=== PATIENT | female | born 1955 | race Caucasian/White ===

== ENCOUNTER 2016-08-04 20:02 | Emergency (ER) ==
[2016-08-04 20:37] LABS: URINE SOURCE CLEAN CATCH
[2016-08-04 20:44] LABS: BILIRUBIN URINE NEGATIVE (NEGATIVE); BLOOD URINE SMALL (NEGATIVE); COLOR YELLOW; GLUCOSE URINE NEGATIVE (NEGATIVE); LEUKOCYTES URINE LARGE (NEGATIVE); NITRITE URINE POSITIVE (NEGATIVE); PROTEIN URINE TRACE mg/dL (NEGATIVE); SP GRAVITY URINE 1.012; TURBIDITY URINE HAZY (CLEAR); URINE MICRO REVIEW NEEDED? YES; UROBILINOGEN URINE NORMAL (NORMAL)
[2016-08-04 20:57] LABS: UR EPITHELIAL CELLS <10 /HPF (<10); URINE BACTERIA 4+ /HPF; URINE CULTURE NEEDED? YES; URINE RBC <10 /HPF (<10); URINE WBC TNTC /HPF (<10)
[2016-08-04 20:58] LABS: URINE CASTS NONE SEEN; URINE CRYSTALS NONE SEEN; URINE SMALL ROUND CELLS NONE SEEN
[2016-08-04] MEDS ORDERED: ROCEPHIN IM ONE (22:06)
[2016-08-04] MEDS ORDERED: XYLOCAINE-MPF 1% INJ ONE (22:06)
[2016-08-04] MEDS: TYLENOL PO ONE ×2 (22:06→22:18)
--- NOTE | 2016-08-04 22:18 | PROVIDER DOCUMENTATION ---
HPI-General Adult - General Chief Complaint: General Adult Stated Complaint: CHILLS, BODY ACHES, DIZZY Time Seen by Provider: 08/04/16 22:05 Source: patient Allergies/Adverse Reactions: Patient Allergies Allergy/AdvReac Type Severity Reaction Status Date / Time cyclobenzaprine HCl * Allergy ANAPHYLAXIS Verified 03/27/14 08:02 [From Flexeril] - History of Present Illness -Gen Adult Nature of Presenting Problems: Pt. is 60yof that presents with c/o burning urination and aching all over. Pt. reports she went to her [employer] physician yesterday for her annual exam and told him these symptoms but he took a urine and told her he would call in about a week with her results. Pt. reports she has been taking tylenol for her fever. Location of Pain/Injury: reports: genitalia, generalized. denies: head, face, mouth, neck, chest, upper extremity, hand(s), abdomen, back, pelvis, lower extremity, feet, upper body, lower body Pain Radiation: reports: no radiation Quality of Pain: reports: aching, burning. denies: cramping, dull, fullness, indigestion, pressure, sharp, stabbing, tearing, throbbing, tightness Severity: reports: moderate. denies: mild, severe Onset/Duration: reports: gradual, 2 days ago Timing: reports: still present. denies: improving, gone now, resolved prior to arrival, intermittent, constant, changing over time, getting worse Context/Activities at Onset: reports: none. denies: recent emotional stress, recent physical stress, recent trauma history, possible bad food, cold exposure , out of country travel Modifying Factors: improves with: nothing Associated Symptoms: reports: back/neck pain, fever/chills, genitourinary problems, malaise, muscle aches. denies: anxiety, arm pain, chest pain, constipation, cough, diaphoresis, diarrhea, dizziness, EENT symptoms, fatigue, headaches, heartburn, joint pain, loss of appetite, sinus congestion/drainage, nausea, rash, seizure, shortness of breath, sensory/motor loss, pain with inspiration, swelling/mass in abdomen, syncope, vomiting, weakness, trouble walking Similar Symptoms Previously?: Yes Recently seen or treated by another doctor?: Yes Review of Systems - Adult - REVIEW OF SYSTEMS - ADULT Constitutional: reports: see HPI, chills, fever, fatique. denies: night sweats , weight gain, weight loss Eyes: reports: see HPI. denies: discharge, blurred vision, double vision Ears, Nose, Mouth & Throat: reports: see HPI. denies: ear discharge, ear pain, sinus problem, nose pain, loose teeth, mouth/dental pain, throat pain, throat swelling Cardiovascular: reports: see HPI. denies: chest pain, irregular heart rate, orthopnea, palpitations, syncope Respiratory: reports: see HPI. denies: chronic cough, cough, dyspnea on exertion, pleurisy, shortness of breath, wheezing Gastrointestinal: reports: see HPI. denies: abdominal pain, hematemesis, diarrhea, nausea, vomiting Genitourinary: reports: see HPI, dysuria. denies: discharge, frequency, flank pain, hematuria, hesitency, incontinence, urgency Musculoskeletal: reports: see HPI, back pain, muscle aches. denies: bone pain, joint pain, joint swelling, neck pain Integumentary: reports: see HPI. denies: hives, itching, rash, skin thickening Neurological: reports: see HPI. denies: ataxia, headache/migraines, numbness, paresthesia, seizure, tremors Psychiatric: reports: see HPI. denies: anxiety, depression, emotional problems , insomnia, panic attacks, suicidal thoughts Past History - Adult - PAST MEDICAL HISTORY-ADULT Review of Records: reports: Old Records Reviewed, Nursing Assessment Review, Medications Reviewed, Social history reviewed & non-contributory. Psychiatric: reports: anxiety Physical Exam-General - PHYSICAL EXAM-ADULT Initial Vital Signs Reviewed: Yes - CONSTITUTIONAL General Appearance: alert, mild distress, thin. negative: obese, anxious, lethargic, slow to respond, obtunded, combative - EYES Eyes: PERRL/EOMI, pink conjunctivae. negative: conjuctival exudate, scleral icterus, subconjunctival hemorrhage - HEAD, EARS, NOSE, MOUTH & THROAT HENMT: normocephalic/atraumatic, moist mucous membranes. negative: angioedema, frontal tenderness, maxillary tenderness - NECK Neck: non-tender, full range of motion, supple, normal inspection. negative: lymphadenopathy, trachial deviation, thyromegaly - RESPIRATORY Respiratory: lungs clear, normal breath sounds. negative: crackles, rales, stridor, wheezing - CARDIOVASCULAR Cardiovascular: regular rate, rhythm, no edema, no JVD, no murmur, tachycardia. negative: extra beats, friction rub, irregularly irregular - CHEST (BREASTS) Chest/Breast: deferred - GASTROINTESTINAL (ABDOMEN) Abdominal Exam: normal bowel sounds, non tender, soft. negative: distended, guarding, rigid, rebound, tenderness, hernia, mass - GENITOURINARY Female Genitalia/Pelvic Exam: deferred Rectal Exam: deferred Hemoccult Exam: deferred - LYMPHATIC Lymphatic: no adenopathy. negative: axilla node tender, cervical node tenderness - MUSCULOSKELETAL Back Exam: normal inspection, no CVA tenderness, no vertebral tenderness. negative: ecchymosis, muscle spasm, vertebral tenderness Extremity: normal range of motion, non-tender, normal gait, normal inspection. negative: deformity, erythema, inflammation, swelling, tenderness Peripheral Pulses: radial (R): 2+, radial (L): 2+ - SKIN Integumentary: normal color, normal turgor, warm/dry. negative: cyanosis, diaphoresis, ecchymosis, erythema, jaundice, mottled, pallor, petechiae, purpura , rash, swelling, tenderness - NEUROLOGIC Neurologic: grossly normal, no motor/sensory deficits. negative: abnormal gait , aphasia, facial droop, focal weakness, motor weakness, sensory deficit - PSYCHIATRIC Psych/Mental Status: normal mood/affect, normal thought content, normal thought process, oriented x 3. negative: anxious, paranoid, tearful Progress - PLAN OF CARE/RESULTS Progress/Plan/Lab Results: Discussed results and plan of care with patient. Patient agrees with plan and verbalizes understanding. Vital Signs Temp Pulse Resp BP Pulse Ox 08/04/16 20:28 102.3 F H 103 H 20 137/75 97 cyclobenzaprine HCl * [From Flexeril] Allergy (Verified 03/27/14 08:02) ANAPHYLAXIS No Home Medications 08/04/16 I&O 08/03/16 08/04/16 08/05/16 06:59 06:59 06:59 Output Total 100 Balance -100 Laboratory 08/04/16 20:36 Urine Source CLEAN CATCH Urine Color YELLOW Urine Turbidity HAZY Urine pH 7.0 Ur Specific [place] 1.012 Urine Protein TRACE A Ur Glucose (Stick) NEGATIVE Ur Ketones (Stick) NEGATIVE Urine Blood SMALL A Urine Nitrite POSITIVE A Urine Bilirubin NEGATIVE Urobilinogen Dipstick NORMAL Urine Leukocytes LARGE A Urine WBC (Auto) TNTC A Urine RBC (Auto) <10 U Epithel Cells (Auto) <10 Urine Bacteria (Auto) 4+ Urine Crystals NONE SEEN Small Round Cells NONE SEEN Urine Casts NONE SEEN Urine Yeast-like Cells NONE SEEN Orders Category Date Time Status DIRECT STREP Stat Lab 08/04/16 20:21 Completed INFLUENZA SCREEN A/B Stat Lab 08/04/16 20:21 Completed URINALYSIS W/POSS RFLX CULT [URINALYSIS] Stat Lab 08/04/16 20:36 Completed URINE CULTURE [RM] Routine Lab 08/04/16 21:18 Received URINE MANUAL MICROSCOPIC [URINALYSIS] Stat Lab 08/04/16 20:36 Completed Acetaminophen [Tylenol] Med 08/04/16 22:06 Discontinued 1,000 mg PO NOW ONE CefTRIAXONE [Rocephin] Med 08/04/16 22:06 Discontinued 1 gm IM NOW ONE Lidocaine 1% Pf [Xylocaine-Mpf 1%] Med 08/04/16 22:06 Discontinued 5 ml INJ NOW ONE Laboratory Tests 08/04/16 20:36 Urine Source CLEAN CATCH Urine Color YELLOW Urine Turbidity HAZY Urine pH 7.0 Ur Specific [place] 1.012 Urine Protein TRACE A Ur Glucose (Stick) NEGATIVE Ur Ketones (Stick) NEGATIVE Urine Blood SMALL A Urine Nitrite POSITIVE A Urine Bilirubin NEGATIVE Urobilinogen Dipstick NORMAL Urine Leukocytes LARGE A Urine WBC (Auto) TNTC A Urine RBC (Auto) <10 U Epithel Cells (Auto) <10 Urine Bacteria (Auto) 4+ Urine Crystals NONE SEEN Small Round Cells NONE SEEN Urine Casts NONE SEEN Urine Yeast-like Cells NONE SEEN Departure - Departure Time of Disposition Order: 22:19 DIAGNOSIS: UTI (urinary tract infection) Qualifiers: Urinary tract infection type: acute cystitis Hematuria presence: without hematuria Qualified Code(s): N30.00 - Acute cystitis without hematuria Disposition: HOME 01 Certified Medical Emergency: Emergent Condition: Stable Additional Instructions: Follow up with primary care physician Take medications as directed Drink plenty of water Alternate tylenol and motrin every 4 hours as directed by packaging for fever Return to ED for any concerns or worsening of symptoms ED Follow Up Instructions: You have been treated by a care provider in the Emergency Department. These instructions are being provided to you so you can have an understanding of how to care for yourself upon discharge. Upon discharge from the Emergency Department, you are responsible for making arrangements for follow-up care by a physician of your choice. Take all prescribed medications as directed. Return to the Emergency Department immediately for any new or worsening symptoms. You may call the Physician Referral phone number at [phone] to obtain a list of Physicians who are taking new patients. Prescriptions: Sulfamethoxazole/Trimethoprim [Bactrim Ds Tablet] 1 each PO BID #14 tablet Phenazopyridine HCl [Pyridium] 100 mg PO TID #6 tablet Attestation - Physician/ Mid-level Attestation Patient care was provided by Mid-level provider (LOG HANDLER/PA):: Yes Mid-level provider:: Parveen Lozada Mid-level documentation review:: The Mid-level provider documentation, treatment plan and medical decision making was reviewed by the physician who agrees with all treatment and medical decision making by the MLP.
[2016-08-04 22:57] VITALS: BP 128/72
== END 2016-08-04 22:55 | disposition home or self-care (01) ==
LOC: ED 20:02
DX: N30.00 Acute cystitis without hematuria (principal); R30.0 Dysuria; R50.9 Fever, unspecified; M54.9 Dorsalgia, unspecified; R53.83 Other fatigue; M79.1 Myalgia
CPT/HCPCS: 81001; 82948; 87077; 87081; 87088; 87186; 87430; 87804; 96372; J0696

== ENCOUNTER 2019-06-19 06:20 | Inpatient (IN) ==
--- NOTE | 2019-06-13 07:58 | EKG Report ---
Test Performed on : 06/13/2019 07:52:01 AM Test Reason : PAT Blood Pressure : / mmHG Vent. Rate : 062 BPM Atrial Rate : 062 BPM P-R Int : 156 ms QRS Dur : 084 ms QT Int : 418 ms P-R-T Axes : 065 058 058 degrees QTc Int : 424 ms Sinus rhythm. with premature atrial complexes. Otherwise normal ECG When compared with ECG of 27-MAR-2014 07:50, premature atrial complexes. are now present Confirmed by Diaz BRISCOE, P.J.M ([id number]) on 06/13/2019 7:58:43 PM
[2019-06-13 08:50] LABS: URINE SOURCE CLEAN CATCH
[2019-06-13 09:10] LABS: BASO# 0.04 X1000 (0.0-0.2); BASO% 0.6 % (0.0-0.8); EOS# 0.09 X1000 (0.0-0.7); EOS% 1.4 % (0.0-10.0); HEMATOCRIT 41.3 % (37.0-47.0); HEMOGLOBIN 13.3 g/dL (12.0-16.0); LYMPH# 1.77 X1000 (1.2-3.4); LYMPH% 28.3 % (20.5-51.1); MCHC 32.2 g/dL (33-37); MCV 99.5 FL (81-99); MONO# 0.55 X1000 (0.11-0.59); MONO% 8.8 % (1.7-9.3); MPV 9.9 FL (7.4-10.4); NEUT# 3.81 X1000 (1.4-6.5); NEUT% 60.9 % (42.2-75.2); PLT 229 X1000 (130-400); RBC 4.15 XMIL (4.2-5.4); RDW 13.4 % (11.5-14.5); WBC 6.26 X1000 (4.8-10.8)
[2019-06-13 09:16] LABS: BILIRUBIN URINE NEGATIVE (NEGATIVE); BLOOD URINE NEGATIVE (NEGATIVE); COLOR YELLOW; GLUCOSE URINE NEGATIVE (NEGATIVE); KETONE URINE NEGATIVE (NEGATIVE); LEUKOCYTES URINE NEGATIVE (NEGATIVE); NITRITE URINE NEGATIVE (NEGATIVE); PROTEIN URINE NEGATIVE (NEGATIVE); SP GRAVITY URINE 1.007; TURBIDITY URINE CLEAR (CLEAR); UROBILINOGEN URINE NORMAL (NORMAL)
[2019-06-13 09:17] LABS: UR EPITHELIAL CELLS <10 /HPF (<10); URINE BACTERIA NEGATIVE /HPF; URINE RBC <10 /HPF (<10); URINE WBC <10 /HPF (<10)
[2019-06-13 09:18] LABS: INR 1.02; PROTIME 13.5 Seconds (11.0-16.0); PTT 25.9 Seconds (22.3-41.8)
[2019-06-13 09:37] LABS: HEMOGLOBIN A1C 4.9 % (4.8-6.0)
[2019-06-13 09:39] LABS: AGAP 10; ALBUMIN 4.1 g/dL (3.5-5.0); BUN 13 mg/dL (8-22); CALCIUM 9.2 mg/dL (8.8-10.2); CHLORIDE 99 mmol/L (98-107); COSMO 273; CREATININE 0.8 mg/dL (0.5-0.9); ESTIMATED GFR > 60; GLUCOSE 82 mg/dL (70-104); POTASSIUM 3.5 mmol/L (3.5-5.1); SODIUM 137 mmol/L (136-145); TCO2 28 mmol/L (25-35)
[2019-06-19] MEDS ORDERED: DIPRIVAN 1% ONE (07:07)
[2019-06-19] MEDS ORDERED: PEPCID ONE (07:10)
[2019-06-19] MEDS ORDERED: COLACE ONE (07:10)
[2019-06-19] MEDS ORDERED: REGLAN ONE (07:10)
[2019-06-19] MEDS ORDERED: LR 1,000 ML ONE (07:11)
[2019-06-19] MEDS ORDERED: KEFZOL 1 GM/D5W 1 GM/50 ML IVPB ONE (07:11)
[2019-06-19] MEDS ORDERED: FENTANYL ONE (07:11)
[2019-06-19] MEDS ORDERED: LYRICA ONE (07:11)
[2019-06-19] MEDS ORDERED: TORADOL ONE (07:56)
[2019-06-19] MEDS ORDERED: MARCAINE 0.25% PF/EPI 1:200,000 ONE (07:56)
[2019-06-19] MEDS ORDERED: DURAMORPH ONE (07:56)
[2019-06-19] MEDS ORDERED: VANCOMYCIN ONE (07:56)
[2019-06-19] MEDS ORDERED: SODIUM CHLORIDE 0.9% ONE (07:57)
[2019-06-19] MEDS ORDERED: EXPAREL 1.3% ONE (07:57)
[2019-06-19] MEDS ORDERED: VERSED ONE (09:02)
[2019-06-19] MEDS: CYKLOKAPRON 1,000 MG/NS 2,000 MG/200 ML IVPB ONE ×2 (09:10→10:45)
[2019-06-19] MEDS ORDERED: ZOFRAN ONE (09:58)
[2019-06-19] MEDS ORDERED: DECADRON ONE (09:58)
[2019-06-19] MEDS ORDERED: OFIRMEV 1000 MG/ISOTONIC SOLN 1,000 MG/100 ML BOTTLE ONE (09:58)
[2019-06-19] MEDS ORDERED: MORPHINE IV PRN ×3 (11:30)
[2019-06-19] MEDS ORDERED: ZOFRAN IV PRN (11:30)
[2019-06-19] MEDS ORDERED: OXY IR PO PRN ×2 (11:30)
[2019-06-19] MEDS ORDERED: OXY IR ONE (11:30)
[2019-06-19] MEDS ORDERED: PHENERGAN ONE (11:30)
[2019-06-19] MEDS ORDERED: NS 1,000 ML ONE (11:30)
--- NOTE | 2019-06-19 12:37 | Diag Imaging Result Doc PS360 ---
KNEE 1-2 VIEWS-RIGHT - 06/19/2019 INDICATION: post op total knee TECHNIQUE: Two views COMPARISON: None FINDINGS: There has been right total knee arthroplasty with patellar resurfacing. Alignment is anatomic. No hardware fracture or loosening. IMPRESSION: No complication. Electronically signed by Ezra Posada 06/19/2019 12:34 PM
[2019-06-19 12:44] LABS: URINE SOURCE CATH
[2019-06-19 12:51] LABS: BILIRUBIN URINE NEGATIVE (NEGATIVE); BLOOD URINE NEGATIVE (NEGATIVE); COLOR YELLOW; GLUCOSE URINE NEGATIVE (NEGATIVE); KETONE URINE NEGATIVE (NEGATIVE); LEUKOCYTES URINE NEGATIVE (NEGATIVE); NITRITE URINE NEGATIVE (NEGATIVE); PH URINE 7.5; PROTEIN URINE NEGATIVE (NEGATIVE); TURBIDITY URINE CLEAR (CLEAR); UROBILINOGEN URINE NORMAL (NORMAL)
[2019-06-19 13:14] LABS: URINE WBC <10 /HPF (<10)
[2019-06-19 13:15] LABS: UR EPITHELIAL CELLS <10 /HPF (<10); URINE RBC <10 /HPF (<10)
[2019-06-19 13:16] LABS: URINE BACTERIA 1+ /HPF
[2019-06-19] MEDS: ULTRAM PO SCH ×2 (14:32→18:45)
[2019-06-19] MEDS: NS 1,000 ML IV SCH (14:33)
[2019-06-19] MEDS ORDERED: FLONASE NAS PRN (14:34)
[2019-06-19] MEDS ORDERED: VENTOLIN HFA INH PRN ×2 (14:34)
[2019-06-19] MEDS: KLONOPIN PO SCH ×2 (16:18→22:12)
[2019-06-19] MEDS: TYLENOL PO SCH ×2 (16:18→22:14)
[2019-06-19] MEDS: KEFZOL 1 GM/D5W 1 GM/50 ML IVPB IV SCH (16:18)
--- NOTE | 2019-06-19 16:56 | OPERATIVE NOTE ---
PROCEDURE DATE: 06/19/2019 PREOPERATIVE DIAGNOSIS: Degenerative joint disease, right knee. POSTOP DIAGNOSIS: Degenerative joint disease, right knee. PROCEDURE PERFORMED: Right total knee replacement. SURGEON: Parveen Ratliff MD. TUBE CLEANER: ESTEFANÍA Bowles. Mr. Gleason was necessary for proper retraction and manipulation of the leg during the case. ANESTHESIA: Spinal. COMPLICATION: None. PROCEDURE IN DETAIL: A 63-year-old female presents for right total knee replacement. Risks, benefits, and no guarantees were discussed and she is willing to proceed. She was taken to the operating room and satisfactory anesthesia obtained. The right leg was prepped and draped in usual sterile fashion. A time-out was taken to confirm operative site, procedure, and patient. The leg was wrapped with an Esmarch and tourniquet inflated to 300 mmHg. A midline incision was made over the front of the knee followed by a quad tendon sparing arthrotomy. The patella was everted and resurfaced with freehand technique. The knee was then flexed with the patella subluxed laterally and an intramedullary hole made in the distal femur and the distal femoral cutting block secured in 5 degrees of valgus. Distal femoral resection was made and the femur sized to a 6 implant. The 4-in-1 finishing block was secured and the anterior, posterior, and chamfer cuts sequentially made. Any remaining osteophytes were debrided off the femur. With the femur prepped, the knee was flexed and a PCL retractor placed behind the tibia to protect the neurovascular bundle. Tibial cutting block was secured and the tibial resection made. Flexion and extension gaps were slightly tight and additional 2 mm taken off the tibia with a balanced 5 mm spacer block resection. Any osteophytes were debrided from the tibia. The tibia was sized to a size 5 tibial tray. Trial reduction was performed with good range of motion and stability. The patella was sized to a 38 medialized dome patella. Drill holes were placed for the patella and femoral implants and the trial components removed. The bony surfaces were thoroughly irrigated with pulsatile lavage. Cement with a gram of vancomycin was utilized to cement a [employer] size 5 rotating platform base plate, a size 6 right CR standard width femoral component and a 38 medialized dome patella. While the cement cured, the joint capsule was injected with Exparel for pain management and Hemovac drain placed. The arthrotomy was then copiously irrigated with irrigant. The 5 mm size 6 rotating platform CR poly was inserted into the tibial tray and the knee reduced. Final range of motion was 0 to 130 degrees with midline patellar tracking. It was then copiously irrigated and Hemovac drain placed. The arthrotomy was closed with #1 Vicryl, the subcutaneous with 2-0 Vicryl and the skin with strip closure. Sterile dressings were applied and the tourniquet released with good return of capillary blood flow and pulses. She was recovered from anesthesia and transferred to recovery room in stable condition. No intraoperative complications were noted. Instrument count and sponge count was correct at the time of closure. cc: Deion Ratliff MD MTDD
[2019-06-19] MEDS ORDERED: PNEUMOVAX 23 IM ONE (19:31)
--- NOTE | 2019-06-19 20:34 | ORTHOPAEDICS PROGRESS NOTE ---
DATE: 06/19/2019 SUBJECTIVE DATA: Ms. Weems is seen on postop day 0 of the right total knee arthroplasty. She reports her pain is well controlled at this time. She denies nausea, vomiting, or diarrhea. OBJECTIVE DATA: She has good sensation in the right lower extremity. There is negative Homans sign. There are good pedal pulses. There is good capillary refill in the toes. The bandages are clean and dry. ASSESSMENT: Degenerative joint disease of right knee with right total knee arthroplasty. PLAN: We will plan to hopefully discharge Ms. Weems tomorrow. We will check back on her in the morning and see how she is doing. Dictated by ESTEFANÍA Bowles for Deion Ratliff MD cc: ESTEFANÍA Bowles MD
[2019-06-19] MEDS ORDERED: SINGULAIR PO SCH (21:00)
[2019-06-19] MEDS ORDERED: REMERON PO SCH (21:00)
[2019-06-19] MEDS: PERIDEX MT SCH (22:12)
[2019-06-19] MEDS: COLACE PO SCH (22:13)
[2019-06-20] MEDS: NS 1,000 ML IV SCH (01:10)
[2019-06-20] MEDS: KEFZOL 1 GM/D5W 1 GM/50 ML IVPB IV SCH (01:10)
[2019-06-20] MEDS: TYLENOL PO SCH ×2 (05:26→13:36)
[2019-06-20] MEDS: ULTRAM PO SCH ×2 (05:26→13:36)
[2019-06-20 07:27] LABS: HEMATOCRIT 33.9 % (37.0-47.0); HEMOGLOBIN 11.2 g/dL (12.0-16.0)
[2019-06-20 07:46] LABS: AGAP 10; BUN 7 mg/dL (8-22); CALCIUM 8.3 mg/dL (8.8-10.2); CHLORIDE 105 mmol/L (98-107); COSMO 278; CREATININE 0.7 mg/dL (0.5-0.9); ESTIMATED GFR > 60; GLUCOSE 80 mg/dL (70-104); POTASSIUM 4.1 mmol/L (3.5-5.1); SODIUM 141 mmol/L (136-145); TCO2 26 mmol/L (25-35)
[2019-06-20] MEDS: PERIDEX MT SCH (08:25)
[2019-06-20] MEDS: KLONOPIN PO SCH (08:25)
[2019-06-20] MEDS: COLACE PO SCH (08:27)
[2019-06-20] MEDS ORDERED: CALTRATE 600 + D PO SCH (09:00)
[2019-06-20] MEDS ORDERED: THERA M PLUS PO SCH (09:00)
[2019-06-20] MEDS ORDERED: MOBIC PO SCH (09:00)
[2019-06-20] MEDS ORDERED: ASPIRIN PO SCH (09:00)
[2019-06-20] MEDS ORDERED: MIRALAX PO SCH (09:00)
[2019-06-20] MEDS ORDERED: PATIENT'S OWN MED PO SCH (09:00)
[2019-06-20] MEDS ORDERED: PEPCID PO SCH (09:00)
[2019-06-20] MEDS ORDERED: REGLAN IV ONE (09:50)
[2019-06-20 11:34] VITALS: BP 110/68
--- NOTE | 2019-06-20 15:11 | ORTHOPAEDICS PROGRESS NOTE ---
DATE: 06/20/2019 SUBJECTIVE DATA: Ms. Weems states that she had some nausea today and vomited twice so far. She reports that the nurse gave her some Phenergan and that has helped. She states her pain knee does have some pain today and it is about a 3/10. OBJECTIVE DATA: There is good sensation in the right lower extremity. There is good pedal pulses. The bandages are clean and dry. The vital signs within normal limits. There is negative Homans sign. ASSESSMENT: Nausea with vomiting and degenerative joint disease right knee with total knee arthroplasty. PLAN: We will plan on giving Ms. Pires a dose of Raglan and keeping her IV fluids going for awhile. If she is feeling better this afternoon, she can be discharged home. I have went ahead and written her prescriptions for [place] 10 q.4 to 6 p.r.n. pain as well as Phenergan for nausea. Also place on aspirin 325 daily for DVT prophylaxis. I have given her a prescription for doxycycline for infection prevention twice daily. Dictated by ESTEFANÍA Bowles for Deion Ratliff MD cc: ESTEFANÍA Bowles MD
[2019-06-20] MEDS ORDERED: MACRODANTIN PO SCH (21:00)
== END 2019-06-20 14:38 | disposition home health service (06) ==
LOC: SURHOLD 06:20 → EDSTATUS 09:00 → 4N 11:04
PROVIDERS: ADMIT Orthopaedic Surgery Adult Reconstructive Orthopaedic Surgery; ATTEND Orthopaedic Surgery Adult Reconstructive Orthopaedic Surgery